=== PATIENT | female | born 1990 | race American Indian/Alaskan Native ===

== ENCOUNTER 2017-02-17 18:19 | Emergency (ER) | payer OTHER ==
[2017-02-17 18:34] VITALS: BP 118/80
[2017-02-17] MEDS ORDERED: FLEXERIL PO ONE (20:05)
[2017-02-17] MEDS ORDERED: MOTRIN PO ONE (20:05)
--- NOTE | 2017-02-17 20:20 | Emergency Department Report ---
HPI - General Chief Complaint: Fall Time Seen by Provider: 02/17/17 19:21 - HPI HPI: Patient is a 26-year-old female who presents to the ED complaining of left wrist pain and some abrasions sustained after falling from a ladder yesterday. Patient states she was also pain of [place] decorations when she was on a stepstool ladder. Patient states she fell and caught her fall was sustained some abrasions to her knees and shoulder. Patient states she did not hit her head or have any loss of consciousness after incident. Mentions that she is getting over cold the past 3 days Denies fevers/chills/nausea/vomiting/abdominal pain/chest pain/shortness of breath/headache or blurry vision. ED Past Medical Hx - Past Medical History Previous Medical History?: No Additional medical history: Vaginal delivery 11-27-2013 - Surgical History Additional Surgical History: Rt breast biopsy - Social History Smoking Status: Never Smoker Substance Use Type: Marijuana - Medications Home Medications: Home Medications Medication Instructions Recorded Confirmed Last Taken Type Ibuprofen [Motrin] 800 mg PO Q8HR PRN #15 tablet 12/22/15 Unknown Rx Cyclobenzaprine [Flexeril 10 MG 10 mg PO QHS PRN #20 tablet 02/17/17 Unknown Rx TAB] Ibuprofen Oral Liqd [Motrin] 400 mg PO TID PRN #200 ml 02/17/17 Unknown Rx guaiFENesin [Robitussin] 200 mg PO Q6HR #80 ml 02/17/17 Unknown Rx ED Review of Systems ROS: Stated complaint: FALL Other details as noted in HPI Constitutional: denies: chills, fever Eyes: denies: eye pain, eye discharge, vision change ENT: denies: ear pain, throat pain Respiratory: denies: SOB with exertion Cardiovascular: denies: chest pain, palpitations Endocrine: no symptoms reported Gastrointestinal: denies: abdominal pain, nausea, diarrhea Genitourinary: denies: urgency, dysuria, discharge Musculoskeletal: arthralgia, myalgia. denies: back pain, joint swelling Skin: denies: rash, lesions Neurological: denies: headache, weakness, paresthesias Psychiatric: denies: anxiety, depression Hematological/Lymphatic: denies: easy bleeding, easy bruising Physical Exam - Physical Exam Vital Signs: Vital Signs 02/17/17 18:23 Temperature 98.8 F Pulse Rate 87 Respiratory 18 Rate Blood Pressure 118/80 O2 Sat by Pulse 100 Oximetry Physical Exam: GENERAL: Alert and oriented x3, no apparent distress, Normal Gait, atraumatic. NECK: Supple. Non edematous, No lymphadenopathy or thyromegaly. No C-spine tenderness LUNGS: Symetrical with respiration, No wheezing, no rales or crackles, CTAB. HEART: S1, S2 present, regular rate and rhythm without murmur, no rubs, no gallops. Non tender to palpation . BACK: Full range of motion, no spinal tenderness, nontender to palpation. EXTREMITIES/MUSCULOSKELETAL: No cyanosis, clubbing, rash, lesions or edema. Full ROM bilaterally all joints. UE/LE Pulses 2+ bilaterally. LE and UE 5+ strength bilaterally, no joint swelling or erythema.No snuffbox tenderness bilaterally. NEUROLOGIC: The patient is cooperative with no focal neurologic deficits. Cranial nerves II through XII are grossly intact. Normal speech. Normal sensation in bilateral upper and lower extremities, No loss of sensation, SKIN: Old healed abrasion on bilateral knees and left shoulder. Bleeding, no erythema Warm and dry, No other lesions, No ulceration or induration present. ED Course Vital Signs 02/17/17 18:23 Temperature 98.8 F Pulse Rate 87 Respiratory 18 Rate Blood Pressure 118/80 O2 Sat by Pulse 100 Oximetry ED Medical Decision Making - Medical Decision Making 26-year-old female presents with abrasions and wrist pain status post fall yesterday ED course: Patient received Tylenol Motrin and Flexeril in ED This patient to clean abrasions and apply triple antibiotic ointment. Vital signs are normal patient is in no acute distress Discussed with patient follow-up with primary care physician. Discussed the patient and take medications as prescribed. Patient has no neurological deficit. Patient is alert and oriented 3 and understands all instructions given. Discussed drowsiness effect of Flexeril makes her drowsy and not to operate machinery while taking flexeril Critical care attestation.: If time is entered above; I have spent that time in minutes in the direct care of this critically ill patient, excluding procedure time. ED Disposition Clinical Impression: Wrist pain, left, Abrasion of knee, bilateral Disposition: TO HOME OR SELFCARE Is pt being admited?: No Does the pt Need Aspirin: No Condition: Stable Instructions: Abrasion (ED), Arthralgia (ED), Musculoskeletal Pain (ED) Prescriptions: Cyclobenzaprine [Flexeril 10 MG TAB] 10 mg PO QHS PRN #20 tablet PRN Reason: Muscle Spasm guaiFENesin [Robitussin] 200 mg PO Q6HR #80 ml Ibuprofen Oral Liqd [Motrin] 400 mg PO TID PRN #200 ml PRN Reason: Pain Referrals: PRIMARY CARE, [Primary Care Provider] - 3-5 Days [facility] [Outside] - 3-5 Days [facility] [Outside] - 3-5 Days [facility] [Outside] - 3-5 Days Forms: Accompanied Note, Work/School Release Form(ED) Time of Disposition: 20:42
== END 2017-02-17 20:56 | disposition home or self-care (01) ==
LOC: ED 18:19
DX: S80.212A Abrasion, left knee, initial encounter (principal); S80.211A Abrasion, right knee, initial encounter; M25.532 Pain in left wrist; F12.10 Cannabis abuse, uncomplicated; W18.39XA Other fall on same level, initial encounter; Y93.89 Activity, other specified; Y92.89 Other specified places as the place of occurrence of the external cause; Y99.8 Other external cause status
CPT/HCPCS: 99282

== ENCOUNTER 2021-01-14 17:14 | Emergency (ER) | payer OTHER ==
[2021-01-14 17:42] VITALS: BP 121/88
--- NOTE | 2021-01-14 18:26 | Emergency Department Report ---
Minor Respiratory - HPI Chief Complaint: Headache Stated Complaint: light chest pain, headaches Time Seen by Provider: 01/14/21 17:56 Duration: 3 Days Minor Respiratory: Yes Able to Tolerate Fluids, No Rhinorrhea, No Sore Throat, No Ear Pain, No Cough, No Sick Contacts, No Hemoptysis, No Chest Pain, No Shortness of Breath, No Fever Other History: 30-year-old -[place] female presents to the emergency room complaining of intermittent headaches for 3 weeks. She also reports ports that she has had a steady headache for the last 3 days. Patient reports she is taking Tylenol and ibuprofen. She states that is located in the frontal and the faith and it throbs. She denies any nausea vomiting or diarrhea. She recently got vaccinated on 01-22. With Moderna. She states her last menstrual period was 01/03/21. ED Review of Systems ROS: Stated complaint: light chest pain, headaches Other details as noted in HPI Comment: All other systems reviewed and negative ED Past Medical Hx - Past Medical History Additional medical history: Vaginal delivery 11-27-2013 - Surgical History Additional Surgical History: Rt breast biopsy - Social History Smoking Status: Current Every Day Smoker Substance Use Type: Marijuana - Medications Home Medications: Home Medications Medication Instructions Recorded Confirmed Last Taken Type Ibuprofen [Motrin] 800 mg PO Q8HR PRN #15 tablet 12/22/15 Unknown Rx Cyclobenzaprine [Flexeril 10 MG 10 mg PO QHS PRN #20 tablet 02/17/17 Unknown Rx TAB] Ibuprofen Oral Liqd [Motrin] 400 mg PO TID PRN #200 ml 02/17/17 Unknown Rx guaiFENesin [Robitussin] 200 mg PO Q6HR #80 ml 02/17/17 Unknown Rx Minor Respiratory Exam - Exam General: Vital signs noted. No distress. Alert and acting appropriately. HEENT: Yes Moist Mucous Membranes, No Pharyngeal Erythema, No Pharyngeal Exudates, No Rhinorrhea, No Conjuctival Injection, No Frontal Tenderness, No Maxillary Tenderness Neck: Yes Supple, No Adenopathy Lungs: Yes Good Air Exchange, No Wheezes, No Ronchi, No Stridor, No Cough, No Labored Respirations, No Retractions, No Use of Accessory Muscles, No Other Abnormal Lung Sounds Heart: Yes Regular, No Murmur Abdomen: Yes Normal Bowel Sounds, No Tenderness, No Peritoneal Signs Skin: No Rash, No Edema Neurologic: Alert and oriented, no deficits. Musculoskeletal: Unremarkable. ED Course Vital Signs 01/14/21 17:36 Temperature 98.9 F Pulse Rate 83 Respiratory 16 Rate Blood Pressure 121/88 O2 Sat by Pulse 98 Oximetry ED Medical Decision Making - Medical Decision Making 30-year-old -[place] female presents to the emergency room complaining of intermittent headaches for 3 weeks. She also reports ports that she has had a steady headache for the last 3 days. Patient reports she is taking Tylenol and ibuprofen. She states that is located in the frontal and the faith and it throbs. She denies any nausea vomiting or diarrhea. She recently got vaccinated on 01-22. With Moderna. She states her last menstrual period was 01/03/21. Recommend to take Tylenol ibuprofen and to follow-up with your primary care provider. Critical care attestation.: If time is entered above; I have spent that time in minutes in the direct care of this critically ill patient, excluding procedure time. ED Disposition Clinical Impression: Intermittent headache, Tobacco abuse counseling Disposition: 01 HOME / SELF CARE / HOMELESS Is pt being admited?: No Does the pt Need Aspirin: No Condition: Stable Instructions: Steps to Quit Smoking, [id number], Tension Headache, Adult, [id number] Additional Instructions: Recommend Tylenol or ibuprofen for headaches. Increase your fluid intake stop smoking cigarettes and marijuana as that can also be triggers for your headaches. Follow-up with your primary care provider. Referrals: PRIMARY CARE, [Primary Care Provider] - 3-5 Days Your, primary care provider [Other] - 3-5 Days Forms: Work/School Release Form(ED) Time of Disposition: 18:28
== END 2021-01-14 19:33 | disposition home or self-care (01) ==
LOC: ED 17:14
DX: R51.9 Headache, unspecified (principal); Z71.6 Tobacco abuse counseling; Z98.890 Other specified postprocedural states; F17.200 Nicotine dependence, unspecified, uncomplicated; F12.90 Cannabis use, unspecified, uncomplicated
CPT/HCPCS: 99282

== ENCOUNTER 2021-01-20 12:19 | Emergency (ER) | payer OTHER ==
[2021-01-20 12:44] VITALS: BP 103/59
--- NOTE | 2021-01-20 13:04 | Emergency Department Report ---
Chief Complaint: Medical Clearance Stated Complaint: FOLLOW UP Time Seen by Provider: 01/20/21 12:49 - HPI History of Present Illness: 30-year-old female presents to the ER today for follow-up from her 01/15/2012 and ER visit. Patient states that she read somewhere in her discharge instructions that if she could not get a hold of her primary care doctor, to come to the ER. Patient was seen for having intermittent headaches, which at the time have been going on for about 3 weeks. Patient was discharged home in stable condition and instructed to take [id number] Tylenol and ibuprofen for headache. She states that she still continues to have the headaches but they are not as bad, and she has been taking ibuprofen which has been helping. Patient reports no symptoms at this time. - Exam Vital Signs: Vital Signs 01/20/21 12:42 Temperature 98.9 F Respiratory 15 Rate Blood Pressure 103/59 MSE screening note: Focused history and physical exam performed. Due to findings the following was ordered: ED Medical Decision Making - Medical Decision Making 30-year-old female presents to the ER today for follow-up from her 01/15/2012 and ER visit. Patient states that she read somewhere in her discharge instructions that if she could not get a hold of her primary care doctor, to come to the ER. Patient was seen for having intermittent headaches, which at the time have been going on for about 3 weeks. Patient was discharged home in stable condition and instructed to take [id number] Tylenol and ibuprofen for headache. She states that she still continues to have the headaches but they are not as bad, and she has been taking ibuprofen which has been helping. Patient reports no symptoms at this time. Patient is well-appearing, nontoxic and not in any acute distress. She is neurologically intact with a normal gait. At this time there is no indication for any emergent intervention or treatment especially since patient symptoms are improving. She will be given referral information to local neurology for additional headache work-up. Recommend that she continue taking Tylenol and ibuprofen or Excedrin for headaches continue. Patient expressed understanding of all instructions and agree with plan. Patient was stable at time of discharge. ED Disposition for MSE Clinical Impression: Encounter for medical screening examination, Intermittent headache Is pt being admited?: No Does the pt Need Aspirin: No Condition: Stable Instructions: General Headache Without Cause, Medical Screening Exam Additional Instructions: Recommend continue taking Tylenol and ibuprofen-Excedrin as needed for headaches. Do recommend follow-up if neurologist for further evaluation of your headaches. Return to the ER if your symptoms changes or worsens in any way. Referrals: [facility] [Provider Group] - 3-5 Days Time of Disposition: 13:03 ED Review of Systems ROS: Stated complaint: FOLLOW UP Other details as noted in HPI Comment: All other systems reviewed and negative Neurological: headache ED Physical Exam - General Limitations: No Limitations General appearance: alert, in no apparent distress - Head Head exam: Present: atraumatic, normocephalic, normal inspection - Eye Eye exam: Present: normal appearance, PERRL, EOMI Pupils: Present: normal accommodation - Neck Neck exam: Present: normal inspection, full ROM. Absent: meningismus - Respiratory Respiratory exam: Present: normal lung sounds bilaterally. Absent: respiratory distress, wheezes, rales - Cardiovascular Cardiovascular Exam: Present: regular rate, normal rhythm, normal heart sounds - Neurological Exam Neurological exam: Present: alert, oriented X3, CN II-XII intact, normal gait - Psychiatric Psychiatric exam: Present: normal affect, normal mood - Skin Skin exam: Present: intact
== END 2021-01-20 13:26 ==
LOC: ED 12:19
DX: R51.9 Headache, unspecified (principal); Z00.00 Encounter for general adult medical examination without abnormal findings
CPT/HCPCS: 99282